=== PATIENT | female | born 1970 | race African-American/Black ===

== ENCOUNTER 2016-12-16 13:15 | Emergency (ER) | payer MEDICAID, OTHER ==
[~2016-12-16] VITALS: Ht 167.6 cm; Wt 86.0 kg
[~2016-12-16 13:15] MED LIST: DIPH1TAB PO
[2016-12-16] MEDS: KETOROLAC TROMETHAMINE 60 MG/2 ML VIAL IM ONE (14:49)
[2016-12-16 15:46] LABS: APPEARANCE,URINE CLOUDY (CLEAR); GLUCOSE, URINE (UA) NEGATIVE (NEGATIVE); KETONES,URINE TRACE mg/dL (NEGATIVE); LEUKOCYTE ESTERASE ,URINE NEGATIVE (NEGATIVE); OCCULT BLOOD,URINE TRACE (NEGATIVE); PH,URINE 5.5 (5.0-8.0); PROTEIN,URINE NEGATIVE (NEGATIVE)
[2016-12-16 15:50] LABS: ADD UA MICROSCOPIC YES; SQUAMOUS EPITHELIAL CELL,UR Many /LPF (None Seen)
[2016-12-16 15:52] LABS: URINALYSIS COMMENT Few Sperm seen.
[2016-12-16 16:45] VITALS: BP 136/88
== END 2016-12-16 17:10 | disposition home or self-care (01) ==
LOC: EMS 13:27
DX: S50.11XA Contusion of right forearm, initial encounter (principal); S50.12XA Contusion of left forearm, initial encounter; S80.01XA Contusion of right knee, initial encounter; S80.02XA Contusion of left knee, initial encounter; S40.012A Contusion of left shoulder, initial encounter; M54.9 Dorsalgia, unspecified; R31.9 Hematuria, unspecified; F12.90 Cannabis use, unspecified, uncomplicated; F17.210 Nicotine dependence, cigarettes, uncomplicated; Z88.0 Allergy status to penicillin; W01.0XXA Fall on same level from slipping, tripping and stumbling without subsequent striking against object, initial encounter; Y93.89 Activity, other specified; Y92.89 Other specified places as the place of occurrence of the external cause; Y99.8 Other external cause status
CPT/HCPCS: 72072; 73030; 73060; 73090; 81001; 96372; 99285; J1885

== ENCOUNTER 2017-04-12 15:05 | Emergency (ER) | payer SELFPAY ==
[~2017-04-12] VITALS: Ht 167.6 cm; Wt 93.2 kg
[2017-04-12] MEDS ORDERED: ASPIRIN 325 MG TABLET PO ONE (17:10)
[2017-04-12 17:16] LABS: BASOPHILS % (AUTO) 0.6 % (0.0-2.0); HEMATOCRIT 37.9 % (36-46); HEMOGLOBIN 12.9 g/dL (12.0-16.0); LYMPHOCYTES # (AUTO) 2.7 K/uL (1.0-4.8); LYMPHOCYTES % (AUTO) 30.4 % (22.0-44.0); MEAN CORPUSCULAR HEMOGLOBIN 29.5 pg (26.0-34.0); MEAN CORPUSCULAR VOLUME 87 fL (80-100); MONOCYTES # (AUTO) 0.5 K/uL (0.1-1.0); MONOCYTES % (AUTO) 5.3 % (2.0-9.0); NEUTROPHILS # (AUTO) 5.6 K/uL (1.8-7.7); NEUTROPHILS % (AUTO) 62.7 % (40.0-70.0); PLATELET COUNT (AUTO) 291 K/uL (150-450); RED BLOOD CELL COUNT(AUTO) 4.37 MIL/uL (4.00-5.20); RED CELL DISTRIBUTION WIDTH 15.6 % (11.5-14.5)
[2017-04-12 17:39] LABS: ANION GAP 9 mmol/L (8-16); CARBON DIOXIDE 25 mmol/L (22-29); CHLORIDE 104 mmol/L (98-107); CREATININE 0.73 mg/dL (0.60-1.30); GLOMERULAR FILTR. RATE CALC > 60 mL/min (>60); SODIUM SERUM 138 mmol/L (136-145); UREA NITROGEN, BLOOD 18 mg/dL (7-18)
[2017-04-12 17:45] LABS: ALANINE AMINOTRANSFERASE 57 U/L (12-78); ALBUMIN 3.4 g/dL (3.4-5.0); ASPARTATE AMINOTRANSFERASE 32 U/L (15-37); BILIRUBIN,TOTAL 0.5 mg/dL (0.1-1.0); TOTAL PROTEIN, SERUM 7.6 g/dL (6.4-8.2)
[2017-04-12 18:22] VITALS: BP 156/72
== END 2017-04-12 18:43 | disposition home or self-care (01) ==
LOC: EMS 15:11
DX: R07.9 Chest pain, unspecified (principal); M54.12 Radiculopathy, cervical region; R03.0 Elevated blood-pressure reading, without diagnosis of hypertension; F17.210 Nicotine dependence, cigarettes, uncomplicated; F12.90 Cannabis use, unspecified, uncomplicated; Z88.0 Allergy status to penicillin
CPT/HCPCS: 71020; 93005; 99285

== ENCOUNTER 2017-12-03 10:42 | Emergency (ER) | payer MEDICAID ==
[~2017-12-03] VITALS: Ht 167.6 cm; Wt 104.5 kg
[2017-12-03] MEDS ORDERED: LISI1TAB11 PO (10:47)
[2017-12-03] MEDS ORDERED: FLUC150T66 PO (10:49)
[2017-12-03] MEDS ORDERED: CHOL200016 PO (10:49)
[2017-12-03] MEDS ORDERED: METR250 PO (10:49)
[2017-12-03 10:53] VITALS: BP 159/105
[2017-12-03 11:18] LABS: BASOPHILS % (AUTO) 0.5 % (0.0-2.0); EOSINOPHILS % (AUTO) 1.4 % (1.0-6.0); HEMATOCRIT 39.2 % (36-46); HEMOGLOBIN 13.9 g/dL (12.0-16.0); LYMPHOCYTES # (AUTO) 2.7 K/uL (1.0-4.8); LYMPHOCYTES % (AUTO) 40.6 % (22.0-44.0); MEAN CORPUSCULAR HEMOGLOBIN 29.9 pg (26.0-34.0); MEAN CORPUSCULAR HGB CONC 35.5 G/dL (31.0-37.0); MEAN CORPUSCULAR VOLUME 84 fL (80-100); MONOCYTES # (AUTO) 0.4 K/uL (0.1-1.0); MONOCYTES % (AUTO) 5.5 % (2.0-9.0); NEUTROPHILS # (AUTO) 3.4 K/uL (1.8-7.7); PLATELET COUNT (AUTO) 277 K/uL (150-450); RED BLOOD CELL COUNT(AUTO) 4.66 MIL/uL (4.00-5.20); RED CELL DISTRIBUTION WIDTH 14.6 % (11.5-14.5)
[2017-12-03 11:30] LABS: ANION GAP 7 mmol/L (8-16); CALCIUM, TOTAL 8.3 mg/dL (8.8-10.5); CARBON DIOXIDE 29 mmol/L (22-29); CHLORIDE 103 mmol/L (98-107); GLOMERULAR FILTR. RATE CALC > 60 mL/min (>60); GLUCOSE,RANDOM 94 mg/dL (70-110); POTASSIUM 3.9 mmol/L (3.5-5.1); SODIUM SERUM 139 mmol/L (136-145); UREA NITROGEN, BLOOD 11 mg/dL (7-18)
[2017-12-03 11:32] LABS: INR 0.9 (0.9-1.1); PROTHROMBIN TIME 9.7 SEC (9.4-11.6)
[2017-12-03 11:55] LABS: ALANINE AMINOTRANSFERASE 57 U/L (12-78); ALBUMIN 3.4 g/dL (3.4-5.0); ALKALINE PHOSPHATASE 82 U/L (46-116); ASPARTATE AMINOTRANSFERASE 36 U/L (15-37); BILIRUBIN,TOTAL 0.8 mg/dL (0.1-1.0); CREATINE KINASE MB 0.5 ng/mL (0-5); CREATINE KINASE, TOTAL 89 U/L (26-192); TOTAL PROTEIN, SERUM 7.4 g/dL (6.4-8.2)
[2017-12-03 11:58] LABS: B-TYPE NATRIURETIC PEPTIDE 24 pg/mL (0-100)
[2017-12-03 12:37] LABS: APPEARANCE,URINE CLEAR (CLEAR); BILIRUBIN,URINE NEGATIVE (NEGATIVE); GLUCOSE, URINE (UA) NEGATIVE (NEGATIVE); KETONES,URINE NEGATIVE (NEGATIVE); LEUKOCYTE ESTERASE ,URINE NEGATIVE (NEGATIVE); NITRATE,URINE NEGATIVE (NEGATIVE); PROTEIN,URINE NEGATIVE (NEGATIVE); UROBILINOGEN,URINE 0.2 mg/dL (<=1.0)
[2017-12-03 12:56] LABS: OCCULT BLOOD,URINE SMALL (NEGATIVE)
[2017-12-03 12:57] LABS: BACTERIA,URINE None Seen /HPF (None Seen); WBC,URINE None Seen /HPF (0-5)
[2017-12-03 12:58] LABS: SQUAMOUS EPITHELIAL CELL,UR Few /LPF (None Seen)
== END 2017-12-03 16:25 | disposition home or self-care (01) ==
LOC: EMS 10:43
DX: T46.4X5A Adverse effect of angiotensin-converting-enzyme inhibitors, initial encounter (principal); R06.02 Shortness of breath; I10 Essential (primary) hypertension; F17.210 Nicotine dependence, cigarettes, uncomplicated; F12.90 Cannabis use, unspecified, uncomplicated; Z88.0 Allergy status to penicillin; Y92.89 Other specified places as the place of occurrence of the external cause
CPT/HCPCS: 93005; 99285

== ENCOUNTER 2018-11-29 11:15 | Emergency (ER) | payer SELFPAY ==
[~2018-11-29] VITALS: Ht 167.6 cm; Wt 88.6 kg
[~2018-11-29 11:15] MED LIST changes: +CHOL200059 PO; -DIPH1TAB PO; +FLUC150T66 PO; +LISI1TAB11 PO; +METR250 PO
[2018-11-29 12:20] LABS: BASOPHILS % (AUTO) 0.9 % (0.0-2.0); EOSINOPHILS % (AUTO) 0.9 % (1.0-6.0); HEMATOCRIT 40.9 % (36-46); HEMOGLOBIN 13.8 g/dL (12.0-16.0); LYMPHOCYTES # (AUTO) 2.3 K/uL (1.0-4.8); LYMPHOCYTES % (AUTO) 28.8 % (22.0-44.0); MEAN CORPUSCULAR HEMOGLOBIN 29.7 pg (26.0-34.0); MEAN CORPUSCULAR HGB CONC 33.8 G/dL (31.0-37.0); MEAN CORPUSCULAR VOLUME 88 fL (80-100); MONOCYTES # (AUTO) 0.5 K/uL (0.1-1.0); MONOCYTES % (AUTO) 5.8 % (2.0-9.0); NEUTROPHILS # (AUTO) 5.1 K/uL (1.8-7.7); NEUTROPHILS % (AUTO) 63.6 % (40.0-70.0); PLATELET COUNT (AUTO) 320 K/uL (150-450); RED BLOOD CELL COUNT(AUTO) 4.66 MIL/uL (4.00-5.20); RED CELL DISTRIBUTION WIDTH 15.1 % (11.5-14.5)
[2018-11-29 13:22] VITALS: BP 138/86
== END 2018-11-29 14:10 | disposition home or self-care (01) ==
LOC: EMS 11:15
DX: R07.89 Other chest pain (principal); I10 Essential (primary) hypertension; F12.90 Cannabis use, unspecified, uncomplicated; Z88.0 Allergy status to penicillin
CPT/HCPCS: 93005

== ENCOUNTER 2019-03-16 11:07 | Emergency (ER) | payer MEDICAID ==
[~2019-03-16] VITALS: Ht 167.6 cm; Wt 100.0 kg
[~2019-03-16 11:07] MED LIST changes: -CHOL200059 PO; -FLUC150T66 PO; -METR250 PO
[2019-03-16 12:19] VITALS: BP 134/68
== END 2019-03-16 12:22 | disposition home or self-care (01) ==
LOC: EMS 11:10
DX: L03.312 Cellulitis of back [any part except buttock and flank] (principal); L50.9 Urticaria, unspecified; I10 Essential (primary) hypertension; F12.90 Cannabis use, unspecified, uncomplicated; Z90.89 Acquired absence of other organs; Z88.0 Allergy status to penicillin; Z79.899 Other long term (current) drug therapy

== ENCOUNTER 2020-06-14 00:49 | Emergency (ER) | payer MEDICAID ==
[~2020-06-14] VITALS: Ht 167.6 cm; Wt 104.5 kg
[~2020-06-14 00:49] MED LIST changes: +ASPI-728 PO; +ATOR20TA65 PO; +CHOL100018 PO; +HYDR-1475 PO; +OMEP20 PO; +ONDA-104 PO
[2020-06-14] MEDS ORDERED: LISI-662 PO (01:14)
[2020-06-14 02:08] VITALS: BP 120/70
== END 2020-06-14 02:08 | disposition home or self-care (01) ==
LOC: EMS 00:51
DX: R19.7 Diarrhea, unspecified (principal); I10 Essential (primary) hypertension; F12.90 Cannabis use, unspecified, uncomplicated; Z90.49 Acquired absence of other specified parts of digestive tract

== ENCOUNTER 2020-11-04 13:35 | Emergency (ER) | payer MEDICAID ==
[~2020-11-04] VITALS: Ht 170.2 cm; Wt 102.3 kg
[~2020-11-04 13:35] MED LIST changes: +ASPI-1450 PO; -ASPI-728 PO; -CHOL100018 PO; +CHOL100044 PO; -HYDR-1475 PO; +HYDR25TA2 PO; +LISI-894 PO; -LISI1TAB11 PO; -ONDA-104 PO
[2020-11-04] MEDS ORDERED: ASPI-1444 PO (16:21)
[2020-11-04] MEDS ORDERED: ATOR40TA71 PO (16:21)
[2020-11-04] MEDS ORDERED: ACETAMINOPHEN 500 MG TABLET PO ONE (16:30)
[2020-11-04 16:48] LABS: BASOPHILS % (AUTO) 0.6 % (0.0-2.0); EOSINOPHILS % (AUTO) 1.5 % (1.0-6.0); HEMOGLOBIN 12.8 g/dL (12.0-16.0); LYMPHOCYTES # (AUTO) 3.6 K/uL (1.0-4.8); LYMPHOCYTES % (AUTO) 41.4 % (22.0-44.0); MEAN CORPUSCULAR HEMOGLOBIN 28.7 pg (26.0-34.0); MEAN CORPUSCULAR HGB CONC 33.6 G/dL (31.0-37.0); MEAN CORPUSCULAR VOLUME 85 fL (80-100); MONOCYTES # (AUTO) 0.5 K/uL (0.1-1.0); MONOCYTES % (AUTO) 5.9 % (2.0-9.0); NEUTROPHILS # (AUTO) 4.4 K/uL (1.8-7.7); NEUTROPHILS % (AUTO) 50.6 % (40.0-70.0); PLATELET COUNT (AUTO) 346 K/uL (150-450); RED BLOOD CELL COUNT(AUTO) 4.45 MIL/uL (4.00-5.20); RED CELL DISTRIBUTION WIDTH 15.2 % (11.5-14.5)
[2020-11-04 16:58] LABS: ANION GAP 7 mmol/L (8-16); CALCIUM, TOTAL 8.8 mg/dL (8.8-10.5); CARBON DIOXIDE 30 mmol/L (22-29); CHLORIDE 100 mmol/L (98-107); GLOMERULAR FILTR. RATE CALC > 60 mL/min (>60); GLUCOSE,RANDOM 102 mg/dL (70-110); POTASSIUM 3.5 mmol/L (3.5-5.1); SODIUM SERUM 137 mmol/L (136-145); UREA NITROGEN, BLOOD 21 mg/dL (7-18)
[2020-11-04 18:03] VITALS: BP 119/67
== END 2020-11-04 18:09 | disposition home or self-care (01) ==
LOC: EMS 13:39
DX: S09.90XA Unspecified injury of head, initial encounter (principal); G62.9 Polyneuropathy, unspecified; K21.9 Gastro-esophageal reflux disease without esophagitis; I10 Essential (primary) hypertension; F17.200 Nicotine dependence, unspecified, uncomplicated; F12.90 Cannabis use, unspecified, uncomplicated; Z90.89 Acquired absence of other organs; Z79.899 Other long term (current) drug therapy; Z88.0 Allergy status to penicillin; Z79.82 Long term (current) use of aspirin; W20.8XXA Other cause of strike by thrown, projected or falling object, initial encounter; Y93.89 Activity, other specified; Y92.89 Other specified places as the place of occurrence of the external cause; Y99.8 Other external cause status
CPT/HCPCS: 70450; 80048; 85025; 99284

== ENCOUNTER 2022-03-09 23:51 | Emergency (ER) | payer MEDICAID ==
[~2022-03-09] VITALS: Ht 167.6 cm; Wt 109.1 kg
[~2022-03-09 23:51] MED LIST changes: +ASPI-1444 PO; -ASPI-1450 PO; -ATOR20TA65 PO; +ATOR40TA71 PO; -CHOL100044 PO
[2022-03-10] MEDS ORDERED: ASPIRIN 325 MG TABLET PO ONE (00:30)
[2022-03-10 00:33] LABS: COVID AG,FIA SOURCE NASOPHARYNGEAL
[2022-03-10 00:36] LABS: BASOPHILS % (AUTO) 0.6 % (0.0-2.0); EOSINOPHILS % (AUTO) 1.7 % (1.0-6.0); HEMATOCRIT 35.1 % (36-46); HEMOGLOBIN 11.6 g/dL (12.0-16.0); LYMPHOCYTES # (AUTO) 3.2 K/uL (1.0-4.8); LYMPHOCYTES % (AUTO) 39.7 % (22.0-44.0); MEAN CORPUSCULAR HEMOGLOBIN 27.5 pg (26.0-34.0); MEAN CORPUSCULAR HGB CONC 33.2 G/dL (31.0-37.0); MEAN CORPUSCULAR VOLUME 83 fL (80-100); MONOCYTES # (AUTO) 0.5 K/uL (0.1-1.0); MONOCYTES % (AUTO) 5.7 % (2.0-9.0); NEUTROPHILS # (AUTO) 4.2 K/uL (1.8-7.7); NEUTROPHILS % (AUTO) 52.3 % (40.0-70.0); PLATELET COUNT (AUTO) 248 K/uL (150-450); RED BLOOD CELL COUNT(AUTO) 4.22 MIL/uL (4.00-5.20)
[2022-03-10 01:01] LABS: ANION GAP 6 mmol/L (8-16); CALCIUM, TOTAL 8.6 mg/dL (8.8-10.5); CARBON DIOXIDE 28 mmol/L (22-29); CHLORIDE 106 mmol/L (98-107); CREATININE 0.92 mg/dL (0.60-1.30); GLUCOSE,RANDOM 118 mg/dL (70-110); POTASSIUM 3.4 mmol/L (3.5-5.1); SODIUM SERUM 140 mmol/L (136-145); UREA NITROGEN, BLOOD 21 mg/dL (7-18)
[2022-03-10 01:04] LABS: B-TYPE NATRIURETIC PEPTIDE 50 pg/mL (0-100); GLOMERULAR FILTR. RATE CALC > 60 mL/min (>60)
[2022-03-10 01:26] LABS: ALANINE AMINOTRANSFERASE 26 U/L (12-78); ALBUMIN 3.1 g/dL (3.4-5.0); ALKALINE PHOSPHATASE 74 U/L (46-116); ASPARTATE AMINOTRANSFERASE 22 U/L (15-37); BILIRUBIN,TOTAL 0.8 mg/dL (0.1-1.0); CREATINE KINASE, TOTAL ONLY 273 U/L (26-192); HCG,QUANTITATIVE 1 mIU/mL (0-6); TOTAL PROTEIN, SERUM 6.6 g/dL (6.4-8.2)
[2022-03-10 02:17] VITALS: BP 113/62
== END 2022-03-10 02:18 | disposition home or self-care (01) ==
LOC: EMS 23:52
DX: R07.89 Other chest pain (principal); Z20.822 Contact with and (suspected) exposure to COVID-19; F10.20 Alcohol dependence, uncomplicated; F12.90 Cannabis use, unspecified, uncomplicated; I10 Essential (primary) hypertension; K21.9 Gastro-esophageal reflux disease without esophagitis; Z90.49 Acquired absence of other specified parts of digestive tract
CPT/HCPCS: 71045; 80053; 82550; 83880; 84484; 84702; 85025; 93005; 99285; 36415-L1; 36415-TC

== ENCOUNTER 2023-02-07 15:12 | Emergency (ER) | payer MEDICAID ==
[~2023-02-07] VITALS: Ht 167.6 cm; Wt 108.2 kg
[~2023-02-07 15:12] MED LIST changes: -ASPI-1444 PO
[2023-02-07 15:50] VITALS: TEMP 98.5
[2023-02-07 16:56] LABS: BASOPHILS % (AUTO) 0.7 % (0.0-2.0); EOSINOPHILS % (AUTO) 1.8 % (1.0-6.0); HEMATOCRIT 38.5 % (36-46); HEMOGLOBIN 12.8 g/dL (12.0-16.0); LYMPHOCYTES # (AUTO) 2.9 K/uL (1.0-4.8); LYMPHOCYTES % (AUTO) 33.3 % (22.0-44.0); MEAN CORPUSCULAR HGB CONC 33.3 G/dL (31.0-37.0); MEAN CORPUSCULAR VOLUME 84 fL (80-100); MONOCYTES # (AUTO) 0.5 K/uL (0.1-1.0); MONOCYTES % (AUTO) 5.7 % (2.0-9.0); NEUTROPHILS % (AUTO) 58.5 % (40.0-70.0); PLATELET COUNT (AUTO) 291 K/uL (150-450); RED BLOOD CELL COUNT(AUTO) 4.58 MIL/uL (4.00-5.20); RED CELL DISTRIBUTION WIDTH 15.5 % (11.5-14.5)
[2023-02-07 17:05] LABS: ANION GAP 9 mmol/L (8-16); CALCIUM, TOTAL 8.6 mg/dL (8.8-10.5); CARBON DIOXIDE 29 mmol/L (22-29); CHLORIDE 103 mmol/L (98-107); CREATININE 0.66 mg/dL (0.60-1.30); GLOMERULAR FILTR. RATE CALC > 60 mL/min (>60); GLUCOSE,RANDOM 97 mg/dL (70-110); POTASSIUM 3.8 mmol/L (3.5-5.1); SODIUM SERUM 141 mmol/L (136-145)
[2023-02-07 17:11] LABS: ALANINE AMINOTRANSFERASE 20 U/L (12-78); ALBUMIN 3.2 g/dL (3.4-5.0); ALKALINE PHOSPHATASE 87 U/L (46-116); ASPARTATE AMINOTRANSFERASE 15 U/L (15-37); BILIRUBIN,TOTAL 0.5 mg/dL (0.1-1.0)
[2023-02-07] MEDS ORDERED: MECL-134 PO (19:13)
[2023-02-07] MEDS ORDERED: ONDA-104 PO (19:13)
[2023-02-07 19:30] VITALS: BP 132/78; PULSE 79; RESP 18
== END 2023-02-07 19:31 | disposition home or self-care (01) ==
LOC: EMS 15:16
DX: R42 Dizziness and giddiness (principal); R51.9 Headache, unspecified; I10 Essential (primary) hypertension; D64.9 Anemia, unspecified; K21.9 Gastro-esophageal reflux disease without esophagitis; K58.9 Irritable bowel syndrome, unspecified; F12.90 Cannabis use, unspecified, uncomplicated; Z90.49 Acquired absence of other specified parts of digestive tract; Z88.0 Allergy status to penicillin
CPT/HCPCS: 70450; 80053; 84484; 85025; 93005; 99284

== ENCOUNTER 2023-03-13 21:47 | Emergency (ER) | payer MEDICAID ==
[~2023-03-13] VITALS: Ht 167.6 cm; Wt 104.5 kg
[~2023-03-13 21:47] MED LIST changes: +MECL-134 PO; +ONDA-104 PO
[2023-03-13 21:49] VITALS: BP 124/74; PULSE 82; RESP 18; TEMP 97.7
[2023-03-13] MEDS ORDERED: PredniSONE 20 MG TABLET PO ONE (22:30)
[2023-03-13] MEDS ORDERED: PRED-554 PO (22:33)
[2023-03-13] MEDS ORDERED: DIPH25CA53 PO (22:33)
== END 2023-03-13 23:09 | disposition home or self-care (01) ==
LOC: EMS 21:47
DX: T78.40XA Allergy, unspecified, initial encounter (principal); I10 Essential (primary) hypertension; F12.90 Cannabis use, unspecified, uncomplicated; Z90.49 Acquired absence of other specified parts of digestive tract; Z88.0 Allergy status to penicillin; X58.XXXA Exposure to other specified factors, initial encounter
CPT/HCPCS: 99283; J7512

== ENCOUNTER 2023-03-15 14:15 | Emergency (ER) | payer MEDICAID ==
[~2023-03-15] VITALS: Ht 172.7 cm; Wt 10.0 kg
[~2023-03-15 14:15] MED LIST changes: +DIPH25CA53 PO; +PRED-554 PO
[2023-03-15 14:24] VITALS: BP 114/73; PULSE 76; RESP 19; TEMP 98.9
[2023-03-15] MEDS ORDERED: LORATADINE 10 MG TABLET PO ONE (14:30)
[2023-03-15] MEDS ORDERED: PredniSONE 20 MG TABLET PO ONE (14:30)
[2023-03-15] MEDS ORDERED: OXYB-34 PO (14:34)
[2023-03-15] MEDS ORDERED: TOPI25 PO (14:34)
[2023-03-15] MEDS ORDERED: CHOL20002 PO (14:34)
[2023-03-15] MEDS ORDERED: LORA-997 PO (14:34)
[2023-03-15] MEDS ORDERED: VENL-53 PO (14:34)
[2023-03-15] MEDS ORDERED: DIPH25CA85 PO (15:24)
[2023-03-15] MEDS ORDERED: LORA10TA7 PO (15:24)
[2023-03-15] MEDS ORDERED: CLOB15CR10 TP (15:24)
== END 2023-03-15 16:19 | disposition home or self-care (01) ==
LOC: EMS 14:17
DX: L50.0 Allergic urticaria (principal); I10 Essential (primary) hypertension; F12.90 Cannabis use, unspecified, uncomplicated; Z90.49 Acquired absence of other specified parts of digestive tract; Z88.0 Allergy status to penicillin
CPT/HCPCS: 99283; J7512

== ENCOUNTER 2023-10-15 09:08 | Emergency (ER) | payer MEDICAID ==
[~2023-10-15] VITALS: Ht 167.6 cm; Wt 95.0 kg
[~2023-10-15 09:08] MED LIST changes: -ATOR40TA71 PO; +CHOL20002 PO; +CLOB15CR10 TP; +DIPH25CA85 PO; +LORA-997 PO; +LORA10TA7 PO; -MECL-134 PO; -OMEP20 PO; -ONDA-104 PO; +OXYB-34 PO; +TOPI25 PO; +VENL-53 PO
[2023-10-15 09:11] VITALS: TEMP 99.4
[2023-10-15] MEDS ORDERED: LISI40TA9 PO (09:12)
[2023-10-15] MEDS ORDERED: HYDR25TA PO (09:12)
[2023-10-15 09:46] LABS: BASOPHILS % (AUTO) 0.7 % (0.0-2.0); EOSINOPHILS % (AUTO) 2.2 % (1.0-6.0); HEMOGLOBIN 13.7 g/dL (12.0-16.0); LYMPHOCYTES # (AUTO) 2.5 K/uL (1.0-4.8); LYMPHOCYTES % (AUTO) 35.9 % (22.0-44.0); MEAN CORPUSCULAR HEMOGLOBIN 28.8 pg (26.0-34.0); MEAN CORPUSCULAR HGB CONC 34.2 G/dL (31.0-37.0); MEAN CORPUSCULAR VOLUME 84 fL (80-100); MONOCYTES # (AUTO) 0.4 K/uL (0.1-1.0); MONOCYTES % (AUTO) 5.4 % (2.0-9.0); NEUTROPHILS # (AUTO) 3.8 K/uL (1.8-7.7); NEUTROPHILS % (AUTO) 55.8 % (40.0-70.0); PLATELET COUNT (AUTO) 285 K/uL (150-450); RED BLOOD CELL COUNT(AUTO) 4.75 MIL/uL (4.00-5.20); RED CELL DISTRIBUTION WIDTH 14.6 % (11.5-14.5); WHITE BLOOD COUNT (AUTO) 6.8 K/uL (4.5-11.0)
[2023-10-15 10:03] LABS: TROPONIN I-HIGH SENSITIVITY 4 ng/L (<51)
[2023-10-15 10:10] LABS: ANION GAP 8 mmol/L (8-16); CALCIUM, TOTAL 8.5 mg/dL (8.8-10.5); CARBON DIOXIDE 28 mmol/L (22-29); CHLORIDE 103 mmol/L (98-107); CREATININE 0.71 mg/dL (0.60-1.30); GLOMERULAR FILTR. RATE CALC > 60 mL/min (>60); GLUCOSE,RANDOM 104 mg/dL (70-110); SODIUM SERUM 139 mmol/L (136-145); UREA NITROGEN, BLOOD 14 mg/dL (7-18)
[2023-10-15 10:42] VITALS: BP 148/76; PULSE 76; RESP 18
[2023-10-15] MEDS ORDERED: BENZ-227 PO (10:42)
== END 2023-10-15 10:54 | disposition home or self-care (01) ==
LOC: EMS 09:15
DX: J06.9 Acute upper respiratory infection, unspecified (principal); R07.89 Other chest pain; R42 Dizziness and giddiness; I10 Essential (primary) hypertension; F12.90 Cannabis use, unspecified, uncomplicated; Z90.49 Acquired absence of other specified parts of digestive tract; Z88.0 Allergy status to penicillin
CPT/HCPCS: 71045; 80048; 84484; 85025; 93005; 99285; 36415-L1; 36415-TC

== ENCOUNTER 2024-02-16 07:46 | Emergency (ER) | payer MEDICAID ==
[~2024-02-16] VITALS: Ht 170.2 cm; Wt 81.8 kg
[~2024-02-16 07:46] MED LIST changes: +BENZ-227 PO; -CLOB15CR10 TP; -DIPH25CA53 PO; -DIPH25CA85 PO; +HYDR25TA PO; -HYDR25TA2 PO; -LISI-894 PO; +LISI40TA9 PO; -LORA10TA7 PO; -OXYB-34 PO; -PRED-554 PO
[2024-02-16] MEDS ORDERED: SEMA0.253 SQ (07:51)
[2024-02-16 08:23] LABS: BASOPHILS % (AUTO) 0.4 % (0.0-2.0); EOSINOPHILS % (AUTO) 1.8 % (1.0-6.0); HEMATOCRIT 40.2 % (36-46); HEMOGLOBIN 13.6 g/dL (12.0-16.0); LYMPHOCYTES # (AUTO) 2.4 K/uL (1.0-4.8); LYMPHOCYTES % (AUTO) 30.9 % (22.0-44.0); MEAN CORPUSCULAR HEMOGLOBIN 28.7 pg (26.0-34.0); MEAN CORPUSCULAR HGB CONC 33.8 G/dL (31.0-37.0); MEAN CORPUSCULAR VOLUME 85 fL (80-100); MONOCYTES # (AUTO) 0.4 K/uL (0.1-1.0); MONOCYTES % (AUTO) 4.9 % (2.0-9.0); NEUTROPHILS # (AUTO) 4.8 K/uL (1.8-7.7); PLATELET COUNT (AUTO) 344 K/uL (150-450); RED BLOOD CELL COUNT(AUTO) 4.72 MIL/uL (4.00-5.20); RED CELL DISTRIBUTION WIDTH 14.6 % (11.5-14.5); WHITE BLOOD COUNT (AUTO) 7.7 K/uL (4.5-11.0)
[2024-02-16 08:28] LABS: ANION GAP 8 mmol/L (8-16); CARBON DIOXIDE 28 mmol/L (22-29); CHLORIDE 103 mmol/L (98-107); CREATININE 0.94 mg/dL (0.60-1.30); GLOMERULAR FILTR. RATE CALC > 60 mL/min (>60); GLUCOSE,RANDOM 97 mg/dL (70-110); LIPASE 45 U/L (16-77); POTASSIUM 3.9 mmol/L (3.5-5.1); SODIUM SERUM 139 mmol/L (136-145); UREA NITROGEN, BLOOD 15 mg/dL (7-18)
[2024-02-16 08:32] LABS: CALCIUM, TOTAL 8.6 mg/dL (8.8-10.5)
[2024-02-16 08:39] LABS: TROPONIN I-HIGH SENSITIVITY Less Than 4 ng/L (<51)
[2024-02-16 09:55] VITALS: TEMP 98.2
[2024-02-16 11:00] VITALS: BP 110/66; PULSE 76; RESP 16
== END 2024-02-16 11:42 | disposition home or self-care (01) ==
LOC: EMS 07:46
DX: R19.7 Diarrhea, unspecified (principal); R10.84 Generalized abdominal pain; I10 Essential (primary) hypertension; F12.90 Cannabis use, unspecified, uncomplicated; Z90.49 Acquired absence of other specified parts of digestive tract; Z88.0 Allergy status to penicillin
CPT/HCPCS: 80048; 83690; 84484; 85025; 93005; 99284

== ENCOUNTER 2024-10-29 10:43 | Emergency (ER) | payer MEDICAID ==
[~2024-10-29] VITALS: Ht 167.6 cm; Wt 90.0 kg
[~2024-10-29 10:43] MED LIST changes: -BENZ-227 PO; -CHOL20002 PO; +SEMA0.253 SQ; -TOPI25 PO; -VENL-53 PO
[2024-10-29 10:46] VITALS: BP 147/85; PULSE 94; RESP 18; TEMP 98.4; O2SAT 100
[2024-10-29 11:15] LABS: BASOPHILS % (AUTO) 0.4 % (0.0-2.0); EOSINOPHILS % (AUTO) 0.5 % (1.0-6.0); HEMATOCRIT 45.5 % (36-46); HEMOGLOBIN 15.3 g/dL (12.0-16.0); LYMPHOCYTES # (AUTO) 2.2 K/uL (1.0-4.8); MEAN CORPUSCULAR HEMOGLOBIN 28.8 pg (26.0-34.0); MEAN CORPUSCULAR HGB CONC 33.7 G/dL (31.0-37.0); MEAN CORPUSCULAR VOLUME 86 fL (80-100); MONOCYTES # (AUTO) 0.6 K/uL (0.1-1.0); MONOCYTES % (AUTO) 9.2 % (2.0-9.0); NEUTROPHILS # (AUTO) 3.5 K/uL (1.8-7.7); NEUTROPHILS % (AUTO) 54.9 % (40.0-70.0); PLATELET COUNT (AUTO) 286 K/uL (150-450); RED BLOOD CELL COUNT(AUTO) 5.32 MIL/uL (4.00-5.20); RED CELL DISTRIBUTION WIDTH 15.2 % (11.5-14.5); WHITE BLOOD COUNT (AUTO) 6.3 K/uL (4.5-11.0)
[2024-10-29 11:24] LABS: ANION GAP 10 mmol/L (8-16); CARBON DIOXIDE 28 mmol/L (22-29); CHLORIDE 101 mmol/L (98-107); CREATININE 0.84 mg/dL (0.60-1.30); GLOMERULAR FILTR. RATE CALC > 60 mL/min (>60); GLUCOSE,RANDOM 92 mg/dL (70-110); POTASSIUM 3.4 mmol/L (3.5-5.1); SODIUM SERUM 139 mmol/L (136-145); UREA NITROGEN, BLOOD 12 mg/dL (7-18)
[2024-10-29 11:35] LABS: COVID AG,FIA SOURCE NASAL SWAB
[2024-10-29 12:08] LABS: INFLUENZA TYPE A NEGATIVE FOR TYPE A (NEGATIVE); INFLUENZA TYPE B NEGATIVE FOR TYPE B (NEGATIVE); SARS-COV2 (COVID) ANTIGEN,FIA Negative (Negative)
[2024-10-29] MEDS: POTASSIUM CHLORIDE 20 MEQ ER TABLET PO ONE (13:07)
== END 2024-10-29 13:12 | disposition home or self-care (01) ==
LOC: EMS 10:43
DX: J06.9 Acute upper respiratory infection, unspecified (principal); I95.1 Orthostatic hypotension; E87.6 Hypokalemia; B97.89 Other viral agents as the cause of diseases classified elsewhere; I10 Essential (primary) hypertension; F12.90 Cannabis use, unspecified, uncomplicated; K58.9 Irritable bowel syndrome, unspecified; Z88.0 Allergy status to penicillin; Z79.899 Other long term (current) drug therapy; Z20.822 Contact with and (suspected) exposure to COVID-19
CPT/HCPCS: 80048; 85025; 87804; 93005; 99284

== ENCOUNTER 2024-12-15 08:01 | Emergency (ER) | payer MEDICAID ==
[~2024-12-15] VITALS: Ht 170.2 cm; Wt 95.5 kg
[~2024-12-15 08:01] MED LIST changes: +LISI-1024 PO; -LISI40TA9 PO
[2024-12-15 08:04] VITALS: BP 128/82; PULSE 80; RESP 18; TEMP 98.6; O2SAT 99
[2024-12-15] MEDS ORDERED: HYDR12.54 PO (08:12)
[2024-12-15] MEDS ORDERED: LOPE-232 PO (08:12)
[2024-12-15] MEDS ORDERED: SEMA2.4P SQ (08:12)
[2024-12-15] MEDS: KETOROLAC TROMETHAMINE 30 MG/ML VIAL IM ONE (08:27)
[2024-12-15] MEDS ORDERED: IBUP-1492 PO (08:28)
[2024-12-15] MEDS: ACETAMINOPHEN 500 MG TABLET PO ONE (08:28)
[2024-12-15] MEDS ORDERED: ACET-3385 PO (08:28)
== END 2024-12-15 08:52 | disposition home or self-care (01) ==
LOC: EMS 08:01
DX: M77.12 Lateral epicondylitis, left elbow (principal); K21.9 Gastro-esophageal reflux disease without esophagitis; I10 Essential (primary) hypertension; K58.9 Irritable bowel syndrome, unspecified; F12.90 Cannabis use, unspecified, uncomplicated; Z98.890 Other specified postprocedural states; Z88.0 Allergy status to penicillin; Z79.899 Other long term (current) drug therapy
CPT/HCPCS: 99283; 96372; J1885

== ENCOUNTER 2024-12-25 11:37 | Emergency (ER) | payer MEDICAID ==
[~2024-12-25] VITALS: Ht 167.6 cm; Wt 93.1 kg
[~2024-12-25 11:37] MED LIST changes: +ACET-3385 PO; +HYDR12.54 PO; -HYDR25TA PO; +IBUP-1492 PO; +LOPE-232 PO; -LORA-997 PO; -SEMA0.253 SQ; +SEMA2.4P SQ
[2024-12-25 11:45] VITALS: BP 123/63; PULSE 61; RESP 18; TEMP 97.2; O2SAT 96
== END 2024-12-25 15:38 | disposition home or self-care (01) ==
LOC: EMS 11:37
DX: M77.8 Other enthesopathies, not elsewhere classified (principal); K21.9 Gastro-esophageal reflux disease without esophagitis; K58.9 Irritable bowel syndrome, unspecified; F12.90 Cannabis use, unspecified, uncomplicated; I10 Essential (primary) hypertension; Z88.0 Allergy status to penicillin; Z90.49 Acquired absence of other specified parts of digestive tract; Z79.899 Other long term (current) drug therapy
CPT/HCPCS: 99282; Z7502

== ENCOUNTER 2025-02-02 12:37 | Emergency (ER) | payer MEDICAID ==
[~2025-02-02] VITALS: Ht 167.6 cm; Wt 95.5 kg
[2025-02-02] MEDS ORDERED: IBUP-1492 PO (14:34)
[2025-02-02] MEDS: IBUPROFEN 600 MG TABLET PO ONE (14:38)
[2025-02-02 14:39] VITALS: BP 118/82; PULSE 74; RESP 18; TEMP 97.6; O2SAT 99
== END 2025-02-02 14:51 | disposition home or self-care (01) ==
LOC: EMS 12:39
DX: S80.01XA Contusion of right knee, initial encounter (principal); S60.212A Contusion of left wrist, initial encounter; S09.90XA Unspecified injury of head, initial encounter; K21.9 Gastro-esophageal reflux disease without esophagitis; I10 Essential (primary) hypertension; K58.9 Irritable bowel syndrome, unspecified; F12.90 Cannabis use, unspecified, uncomplicated; Z90.49 Acquired absence of other specified parts of digestive tract; Z79.899 Other long term (current) drug therapy; Z88.0 Allergy status to penicillin; W01.0XXA Fall on same level from slipping, tripping and stumbling without subsequent striking against object, initial encounter; Y93.89 Activity, other specified; Y92.89 Other specified places as the place of occurrence of the external cause; Y99.8 Other external cause status
CPT/HCPCS: 99284; 73110-TC; 73562-TC; Z7502